=== PATIENT | male | born 1990 | race African-American/Black ===

== ENCOUNTER 2019-02-07 17:23 | Emergency (ER) | payer OTHER ==
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
[2019-02-07] MEDS ORDERED: oxyCODONE/APAP 5/325 1 TAB TABLET PO ONE (18:30)
[2019-02-07] MEDS ORDERED: DIPHTH,PERTUSS(ACELL),TET TOX 0.5 ML DISP.SYRIN. VAX IM ONE (18:30)
--- NOTE | 2019-02-07 18:33 | RAD ---
PQRS Compliance Statement: One or more of the following individualized dose reduction techniques were utilized for this examination: 1. Automated exposure control 2. Adjustment of the mA and/or kV according to patient size 3. Use of iterative reconstruction technique PQRS Compliance Statement: One or more of the following individualized dose reduction techniques were utilized for this examination: 1. Automated exposure control 2. Adjustment of the mA and/or kV according to patient size 3. Use of iterative reconstruction technique CT head, maxillofacial and cervical spine without contrast 02/07/2019 12:00 AM INDICATION: Fall COMPARISON: None available TECHNIQUE: Multiple axial CT images of the head were obtained from skull base through the vertex without intravenous contrast. Multiple axial CT images of the cervical spine and maxillofacial structures were obtained without intravenous contrast. Coronal and sagittal reformats are provided. FINDINGS: Head and maxillofacial: Ventricles, sulci and basal cisterns are within normal limits. There is no hydrocephalus. Ji-white matter differentiation is normal. There is no acute intracranial hemorrhage. There is no mass, mass effect or midline shift. Posterior fossa is normal in appearance. Osseous orbits are intact. Globes are spherical and contour. No lens dislocation. No intraconal or extraconal mass is identified. Nasal septum is predominantly midline. Ostiomeatal units are widely patent. Paranasal sinuses are intact. Paranasal sinuses are well aerated. Temporal mandibular joints are well aligned. Skull base is intact. Maxilla facial structures are intact. Maxilla and mandible are intact. Cervical spine: Reversal of the normal cervical lordosis may be secondary to patient positioning versus muscle spasm. No spondylolisthesis. Skull base is intact. Craniocervical junction is normal in appearance. Atlantoaxial articulation is normal. Vertebral body heights are maintained without evidence for acute fracture. Facet joints are within normal limits. No significant osseous neural foraminal stenosis. No significant osseous spinal canal stenosis. Transverse foramen are intact. There is no prevertebral soft tissue swelling. Thyroid gland is normal in appearance. Visualized portions of the lung apices are normal without evidence for suspicious pulmonary nodule or infiltrate. IMPRESSION: 1. No acute intracranial hemorrhage. 2. No evidence for maxillofacial fracture. 3. No acute fracture or malalignment of the cervical spine. Electronically signed by: Sandra Roblero MD (02/07/2019 6:30 PM) [place] [id number]
[2019-02-07 18:41] VITALS: BP 118/67
== END 2019-02-07 19:35 | disposition home or self-care (01) ==
LOC: EEVIPCON 17:23 → ER 17:23
DX: S00.83XA Contusion of other part of head, initial encounter (principal); S00.511A Abrasion of lip, initial encounter; R51 Headache; Y04.0XXA Assault by unarmed brawl or fight, initial encounter; Y93.89 Activity, other specified; Y92.89 Other specified places as the place of occurrence of the external cause; Y99.8 Other external cause status
CPT/HCPCS: 70450; 70486; 72125; 90471; 90715; 99284-25